=== PATIENT | female | born 2005 | race Caucasian/White ===

== ENCOUNTER 2024-12-30 08:48 | Outpatient (CLI) | payer SELFPAY ==
--- OUTSIDE RECORDS SUMMARY | 2024-12-30 08:58 | XMS_ITS | Clinical Summary ---
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 Primary Care Provide r Source Comments [facility] is fully rolled out with thefollowing exceptions:[facility] Allergies No known active allergies Medications levothyroxine (SYNTHROID) 25 MCG tablet Take 1 tablet by mouth 1 time a day. Takes half of 25 mcg Active lacosamide (VIMPAT) 100 MG tabletIndicatio ns:Partial epilepsy Take 1 tablet (100 mg total) by mouth every 12 hours. This prescription contains 30 days' supply. 60 tablet 1 3 Active Additional Information Patient not taking.Reported on 02/11/2024 clonazePAM (KlonoPIN) 0.5 MG tabletIndicatio ns:Partial epilepsy Take 1 tablet by mouth 2 times a day as needed for see PRN comment (for menses). 1 twice daily at menses onset & continue for 3 days thereafter 8 tablet 2 5 Active lacosamide (VIMPAT) 150 MG tabletIndicatio ns:Partial epilepsy Take 1 tablet by mouth every 12 hours. 60 tablet 2 5 Active Family History Medical History Relation Name Comments Seizure Disorders Maternal Aunt Seizure Disorders Maternal Grandmother Tics Neg Hx Tremors Neg Hx Relation Name Status Comments Maternal Aunt Maternal Grandmother Social History Tobacco Use Types Packs/Day Years Used Date Smoking Tobacco: Never Smokeless Tobacco: Never Tobacco Cessation:Counseling Given: Not Answered Alcohol Use Standard Drinks/Week Comments Never 0 (1 standard drink = 0.6 oz pur e alcohol) Intimate Partner Violence Answer Date R ecorded If you are in a relationship , do you feel safe in that relationship? Yes 02/11/2024 If you are in a relationship , do you feel safe in that relationship? Not currently in a relationship 02/11/2024 Safety and Environment Answer Date Samir rded Do you have any concerns of physical abuse, sexual abuse, or neglect of your child? No 02/11/2024 Adult hurting you or family (-18) Not on file 02/11/2024 Someone touched you in a sexual way? (-18) Not on file 02/11/2024 Is someone hurting your or your family? No 02/11/2024 Historical abuse worry Not on file If you have firearms in the home, are they all in locked storage AND unloaded? Not on file 02/11/2024 Comments Unknown Sex and Gender Information Value Date Recorded Sex Assigned at Not on file Legal Sex Female 4:18 PM EDT Gender Identity Not on file Sexual Orientation Not on file Last Filed Vital Signs Vital Sign Reading Time Taken Comments Blood Pressure 141/73 02/11/2024 3:06 PM EDT Pulse 93 02/11/2024 3:06 PM EDT Temperature - - Respiratory Rate - - Oxygen Saturation - - Inhaled Oxygen Concentration - - Weight 61.4 kg (135 lb 5.8 oz) 02/11/2024 3:06 P M EDT Height 160.7 cm (5' 3.27 ) 02/11/2024 3:06 PM ED T Body Mass Index 23.78 02/11/2024 3:06 PM EDT Plan of Treatment Health Maintenance Due Date Last Done Comments IPV IMMUNIZATION (2 of 3 - 4 -dose series) 11/18/2008 10/21/2008 VARICELLA IMMUNIZATION (2 of 2 - 2-dose childhood series) 02/16/2009 11/24/2008 DTAP/Tdap/Td IMMUNIZATION (2 - Tdap) 07/18/2010 10/21/2008 HPV IMMUNIZATION (1 - 3-dose series) 07/18/2018 MENINGOCOCCAL B VACCINE (1 o f 2 - Standard) 2019 HEPATITIS B IMMUNIZATION (1 of 3 - 19+ 3-dose series) 07/18/2022 COVID-19 Vaccine (1 - 2023-2 5 season) 2024 AMB SEASONAL FLU VACCINE (#1) 01/17/2025 MMR IMMUNIZATION Completed 10/21/2008 MCV4 IMMUNIZATION Completed 12/14/2019 HIB IMMUNIZATION Aged Out No longer e ligible based on patient's age to complete this topic PNEUMOCOCCAL IMMUNIZATION Aged Out No longer eligible based on patient's age to complete this topic Respiratory Syncytial Virus (RSV) <20mo Aged Out No longer eligible b ased on patient's age to complete this topic Care Teams Poultry Dressing Worker Relationship Specialty Start Date End Date Gina Franco D.O. [address] [place] [address] [place] [id number] PCP - General 02/20/24
--- OUTSIDE RECORDS SUMMARY | 2024-12-30 08:58 | XMS_ITS | Clinical Summary ---
Author Organization [facility] Address [address] [place] [address] Care Team Providers Care Director Content Marketing Name Role Phone Shayna Lyman MD Primary Care Provider [phone] Allergies No known active allergies Social History Tobacco Use Types Packs/Day Years Used Date Smoking Tobacco: Never Assessed Sex and Gender Information Value Date Recorded Sex Assigned at Not on file Legal Sex Male 8:10 AM EDT Gender Identity Not on file Sexual Orientation Not on file Plan of Treatment Health Maintenance Due Date Last Done Comments [facility]-Depression Screening 2003 [facility]-/Child/Adol SDOH Screenings 2003 [facility]-IPV Vaccines (2 of 3 - 4-dose series) 11/18/2008 10/21/2008 [facility]-Varicella Vaccines (2 of 2 - 2-dose childhood series) 02/16/2009 11/24/2008 HPV Vaccines (1 - Male 3-dose series) 07/18/2018 [facility]- SDOH Screenings 07/18/2021 [facility]-Adult SDOH Screenings 07/18/2021 [facility]-DTaP,Tdap,and Td Vaccines (2 - Tdap) 07/18/2022 10/21/2008 [facility]-Hepatitis B Vaccines (1 of 3 - 19+ 3-dose series) 07/18/2022 [id number] Vaccine (1 - season) 2024 [facility]-Influenza Vaccine (#1) 2025 [facility]-Zoster Vaccines (1 of 2) 07/18/2053 11/24/2008 [facility]-Hepatitis A Vaccines Completed 018, 06/11/2017 [facility]-HIB Vaccines Aged Out No longer e ligible based on patient's age to complete this topic [facility]-Pneumococcal Vaccine: Pediatrics (0 to 5 Years) and At-Risk Patients (6 to 49 Years) Aged Out No longer eligible b ased on patient's age to complete this topic [facility]-Rotavirus Vaccines Aged Out No lo nger eligible based on patient's age to complete this topic Insurance [employer] Care Teams Director Content Marketing Relationship Specialty Start Date End Date Shayna Lyman MD [address] [place] [id number] PCP - General 10/24/20
== END 2024-12-30 23:59 | disposition home or self-care (01) ==
LOC: LAB 08:51
PROVIDERS: Visit Provider Specialist
DX: R56.9 Unspecified convulsions (principal)
CPT/HCPCS: 36415; 80235